=== PATIENT | male | born 1945 | race Caucasian/White ===

== ENCOUNTER 2016-06-21 06:56 | Day surgery (SDC) | payer MEDICARE, OTHER ==
[2016-06-16 09:25] LABS: BASOPHILS 0.2 %; BASOPHILS ABSOLUTE 0.02 10/3/uL (0.0-0.16); EOSINOPHILS 1.7 %; EOSINOPHILS ABSOLUTE 0.15 10/3/uL (0.0-0.53); HEMOGLOBIN 15.8 g/dL (13.6-17.8); IMMATURE GRANULOCYTES 0.2 %; IMMATURE GRANULOCYTES ABSOLUTE 0.02 10/3/uL (0.0-0.11); LYMPHOCYTES 23.2 %; LYMPHOCYTES ABSOLUTE 2.04 10/3/uL (0.67-4.30); MEAN CORPUS HGB CONC 34.2 g/dL (32.0-36.0); MEAN CORPUSCULAR HEMOGLOB 32.6 pg (26.0-34.0); MEAN CORPUSCULAR VOLUME 95.5 fL (80-100); MEAN PLATELET VOLUME 9.4 fL (9.2-13.0); MONOCYTES 9.4 %; MONOCYTES ABSOLUTE 0.83 10/3/uL (0.21-1.20); NEUTROPHILS 65.3 %; NEUTROPHILS ABSOLUTE 5.74 10/3/uL (2.02-8.40); RED CELL COUNT 4.84 10/6/uL (4.7-6.1); WHITE BLOOD CELLS 8.8 10/3/uL (4.5-10.5)
[2016-06-16 09:26] LABS: HEMATOCRIT 46.2 % (40.0-51.0); MANUAL DIFF NO %; PLATELET COUNT 231 10/3/uL (150-400)
[2016-06-16 09:30] LABS: PARTIAL THROMBO TIME 29.2 SEC (22.5-37.2); PROTIME (NOT ORD) 13.3 SEC (12.0-14.5)
[2016-06-16 09:37] LABS: CALCIUM, SERUM 8.4 MG/DL (8.5-10.4); CHLORIDE, SERUM 106 MMOL/L (96-112); CO2 (CARBON DIOXIDE) 31 MMOL/L (24-34); CREATININE 0.75 MG/DL (0.70-1.30); GFR AFRICAN AMERICAN 107 ML/MIN (>=60); GFR NON AFRICAN AMERICAN 92 ML/MIN (>=60); GLUCOSE, SERUM 97 MG/DL (60-99); SODIUM, SERUM 144 MMOL/L (135-148)
[2016-06-16 09:38] LABS: BUN (BLOOD UREA NITROGEN) 19 MG/DL (6-23)
--- NOTE | ~2016-06-21 | OP ---
Record Of Operation [facility] [address] [place] [id number] NAME: LEONARD CORONADO : 45 STATUS : [facility]#: [id number] AGE: 71 ADM/REG DATE : 06/21/16 MR#: [id number] REPORT SERV DATE: 06/22/16 DICTATED BY: NGUYEN SENA DATE: 06/22/16 REPORT STATUS : Draft TRANSCRIBED BY: CHRISTINE DATE: 06/22/16 DATE OF PROCEDURE: 06/21/2016 PREOPERATIVE DIAGNOSIS: Right otorrhea and tympanic membrane perforation and chronic otomastoiditis. POSTOPERATIVE DIAGNOSIS: Right otorrhea and tympanic membrane perforation and chronic otomastoiditis with cholesteatoma. OPERATIVE PROCEDURE: Cortical mastoidectomy and type 1 tympanoplasty. INDICATIONS AND SIGNIFICANT HISTORY: The patient is a 71-year-old male with significant history of persistent purulent otorrhea treatment with oral and ototopical medications and not completely resolved his symptoms. They are recurrent. Imaging revealed chronic otomastoiditis and the patient was felt to benefit from surgery at this point. OPERATIVE PROCEDURE AND FINDINGS: After informed consent was obtained, the patient was brought to the operating room and placed on the operating table in supine position at which point, general endotracheal anesthesia was induced by Anesthesia Service and the facial nerve monitor was set up to monitor right orbicularis sada and orbicularis oculi muscles throughout the course of the case. The canal was noted to be markedly edematous and filled with purulent squamous debris. Visualization of the tympanic membrane was difficult secondary to thickening of the external auditory canal skin. Posterior canal incision was made with a Colquitt blade and two lateral limbs were made at the superior and inferior aspects of the lateral canal. Lateral canal flap was then elevated with back elevation. Attention was then turned to the postauricular region where a postauricular incision was made approximately 1 cm off the crease behind the pinna. The incision was taken down to temporalis fascia where approximately a 3 x 2 cm section of temporalis fascia was harvested, spread, cleaned and dried, and placed on the back table. Attention was then turned toward exposure of the mastoid cortex. Undersurface of the mastoid was cleaned with Eduardo elevator. Anterior canal skin was elevated. A 4 x 4 gauze was passed through the postauricular incision into the external auditory canal anteriorly and then used to retract the pinna anteriorly. Weitlaners were also used for exposure. Cortical mastoidectomy was then performed using serially smaller cutting burs of 6, 4, and 2 mm in size. The mastoid antrum was identified. There was noted to be no erosion of the horizontal semicircular canal or exposure of the tegmen. However, there was copious chronic debris within the mastoid air cells that was removed with mastoidectomy. The incus was present but the incus buttress was taken down and the facial recess was opened. Next, returning back to the external auditory canal, a tympanomeatal flap was elevated and drum was noted to have an inferiorly based approximately 40% marginal perforation. Cholesteatoma and polyp were noted within the external auditory canal and within the middle ear. Using combination of postauricular and transcanal approaches, the middle ear was cleaned of debris and the malleus was exposed. The previously harvested graft was then placed lateral to the malleus and lateral to the bony annulus of the canal. The canal was then packed with Floxin-soaked Gelfoam and the tympanic membrane was then replaced over the graft. The graft was supported anteriorly by the malleus and posteriorly by the bony canal. The external canal was Record Of Operation [address] [address] NAME: LEONARD CORONADO : 45 STATUS : [facility] PAT#: [id number] AGE: 71 ADM/REG DATE : 06/21/16 MR#: [id number] REPORT SERV DATE: 06/22/16 DICTATED BY: NGUYEN SENA DATE: 06/22/16 REPORT STATUS : Draft TRANSCRIBED BY: MODL DATE: 06/22/16 inferiorly packed with Floxin-soaked Gelfoam. At this point, a postauricular incision was closed with Vicryl suture followed by closure of the skin with plain gut suture. Mastoid dressing was applied. The patient was then turned back toward Anesthesia, aroused from anesthesia, and taken to the Postanesthesia Care Unit in satisfactory condition. COMPLICATIONS: None. ESTIMATED BLOOD LOSS: Less than 10 mL. IV FLUIDS: Per Anesthesia. JAYME/BENL Nguyen Sena M.D. / [id number] CC: Мария Arango M.D.
[~2016-06-21 06:56] MED LIST: ASA5GR PO; BREO ELLIPTA INH; KLONO5 PO; MULTIVITAMI1 PO; PRIN10 PO; ROCEPH IV; ULTRAM50 PO; VITAMIN C PO
== END 2016-06-21 16:29 | disposition home or self-care (01) ==
LOC: SDC 06:56
PROVIDERS: Otolaryngology
PROC: 09B Ear, Nose, Sinus, Excision (ICD-10-PCS; principal; 2016-06-21 08:45)
DX: H70.11 Chronic mastoiditis, right ear (principal); H71.21 Cholesteatoma of mastoid, right ear; H72.91 Unspecified perforation of tympanic membrane, right ear; I10 Essential (primary) hypertension; F17.210 Nicotine dependence, cigarettes, uncomplicated; G47.30 Sleep apnea, unspecified; G89.29 Other chronic pain; M54.9 Dorsalgia, unspecified; Z86.19 Personal history of other infectious and parasitic diseases; Z88.0 Allergy status to penicillin; Z83.3 Family history of diabetes mellitus; Z82.3 Family history of stroke; Z99.89 Dependence on other enabling machines and devices
CPT/HCPCS: 80048; 85025; 85610; 85730; 88305; 93005; A9270-GY; J0690; J2250; J2370; J2405; J3010